=== PATIENT | female | born 1975 | race Caucasian/White ===

== ENCOUNTER 2025-01-14 15:18 | Emergency (ER) | payer OTHER ==
[2025-01-14] MEDS: Ketorolac 30 MG/ML SDV IM ONE (16:51)
[2025-01-14 17:30] VITALS: BP 113/92; PULSE 80
== END 2025-01-14 16:55 | disposition home or self-care (01) ==
LOC: JD.ED 15:18
DX: S13.4XXA Sprain of ligaments of cervical spine, initial encounter (principal); V87.7XXA Person injured in collision between other specified motor vehicles (traffic), initial encounter
CPT/HCPCS: 70450; 72125; 96372; 99284; A9270; J1885